=== PATIENT | female | born 1940 | race Caucasian/White ===

== ENCOUNTER → 2016-07-20 | Outpatient (CLI) | payer OTHER | END | disposition home or self-care (01) | LOC: PCVCCLINIC 14:50 | PROVIDERS: ATTEND Internal Medicine Cardiovascular Disease | DX: I10 Essential (primary) hypertension (principal); I42.9 Cardiomyopathy, unspecified; I35.0 Nonrheumatic aortic (valve) stenosis; E78.5 Hyperlipidemia, unspecified; G47.33 Obstructive sleep apnea (adult) (pediatric); K50.919 Crohn's disease, unspecified, with unspecified complications; Z79.82 Long term (current) use of aspirin; Z87.891 Personal history of nicotine dependence | CPT/HCPCS: 93005; G0463 ==

== ENCOUNTER → 2017-05-07 | Outpatient (CLI) | payer OTHER | END | disposition home or self-care (01) | LOC: PCVCIMAG 08:00 | DX: I08.3 Combined rheumatic disorders of mitral, aortic and tricuspid valves (principal); I42.9 Cardiomyopathy, unspecified | CPT/HCPCS: 93306 ==

== ENCOUNTER → 2017-11-26 | Outpatient (CLI) | payer OTHER | END | disposition home or self-care (01) | LOC: PCVCCLINIC 15:02 | PROVIDERS: ATTEND Internal Medicine Cardiovascular Disease | DX: I10 Essential (primary) hypertension (principal); I42.8 Other cardiomyopathies; I35.0 Nonrheumatic aortic (valve) stenosis; I45.4 Nonspecific intraventricular block; E78.00 Pure hypercholesterolemia, unspecified; G47.30 Sleep apnea, unspecified; Z79.82 Long term (current) use of aspirin; Z87.891 Personal history of nicotine dependence | CPT/HCPCS: 80061; 93005; G0463 ==

== ENCOUNTER → 2018-05-31 | Outpatient (CLI) | payer OTHER ==
--- NOTE | 2018-05-31 15:47 | PCVCIMAG ---
APPROVED REPORT Study performed: 05/31/2018 09:49:58 EXAM: Comprehensive 2D, Doppler, and color-flow Echocardiogram Patient Location: Echo lab Room #: 2Status: routine BSA: 2.12 HR: 64 bpmBP: 146/66 mmHg Rhythm: NSR with IVCD Other Information Study Quality: Adequate Technically limited study due to surgical scarring. Risk Factors: Cardiac Risk Factors: HTN, Hyperlipidemia Indications Aortic Valve Disease Mitral Valve Disease Cardiomyopathy 2D Dimensions IVSd: 12.51 (7-11mm)LVOT Diam: 19.54 (18-24mm) LVDd: 46.88 mm PWd: 12.01 (7-11mm) LVDs: 30.63 (25-40mm) Left Atrium: 42.56 (27-40mm) Aortic Root: 23.64 mm LV Single Plane 4CH: 56.18 % LV Single Plane 2CH: 54.06 % Biplane EF: 54.0 % Volumes Left Atrial Volume (Systole) Single Plane 4CH: 62.59 mLSingle Plane 2CH: 59.37 mL Biplane LA Volume: 62.00 mLLA ESV Index: 29.00 mL/m2 Aortic Valve AoV Peak Sonido.: 2.73 m/s AO Peak Gr.: 28.83 mmHgLVOT Max P.99 mmHg AO Mean Gr.: 18.28 mmHgLVOT Mean P.56 mmHg AO V2 Mean: 2.01 m/sLVOT Max V: 1.04 m/s AO V2 VTI: 65.38 cmLVOT Mean V: 0.75 m/s ASHLEY (VTI): 1.08 [id number] V1 VTI: 23.65 cm ASHLEY Vmax: 1.14 cm2 SV (LVOT): 70.88 mL Mitral Valve MV Peak Gr.: 8.85 mmHg MV Mean Gr.: 2.65 mmHgE/A Ratio: 1.5 MV Decel. Time: 325.37 ms MV E Max Sonido.: 1.58 m/s MV A Sonido.: 1.07 m/s MV Max Sonido.: 1.49 m/s MV Mean Sonido.: 0.74 m/s MV VTI: 391.37 mm MVA VTI: 181.11 mm2 MV PHT: 88.76 ms MVA (PHT): 2.48 cm2 TDI E/Lateral E': 13.17E/Medial E': 39.50 Medial E' Sonido.: 0.04 m/s Lateral E' Sonido.: 0.12 m/s Pulmonary Vein P Vein S: 0.39 m/sP Vein A: 0.31 m/s P Vein D: 0.44 m/sP Vein A Dur.: 131.5 msec P Vein S/D Ratio: 0.89 Tricuspid Valve TR Peak Sonido.: 2.86 m/s TR Peak Gr.: 32.62 mmHg TV Vmax: 0.77 m/sPA Pressure: 43.00 mmHg Left Ventricle The left ventricle is normal size. There is normal LV segmental wall motion. Mild concentric left ventricular hypertrophy. Left ventricular systolic function is normal. The left ventricular ejection fraction is within the normal range. LVEF is 55-60%. Findings suggest the left atrial pressure is elevated. Right Ventricle The right ventricle is normal size. The right ventricular systolic function is normal. Atria The left atrium size is normal. The right atrium size is normal. Aortic Valve Aortic valve is trileaflet. Moderate aortic valve sclerosis with reduced leaflet excursion. No aortic regurgitation is present. Moderate aortic stenosis. Highest mean aortic valve gradient is 18.3_mmHg. Peak aortic valve gradient is 30.1_mmHg. Calculated ASHLEY by the continuity equation is 1.2_cm2. Mitral Valve The posterior leaflet of the mitral valve is moderately thickened but opens well. Moderate mitral regurgitation. No evidence of mitral valve stenosis. Tricuspid Valve The tricuspid valve is normal in structure. Mild tricuspid regurgitation with a PA pressure of 43 mmHg. Moderate pulmonary hypertension. Pulmonic Valve Pulmonic valve is not well visualized. There is no pulmonic valvular regurgitation. Great Vessels The aortic root is normal in size. Ascending aorta is not visualized. Aortic arch is not well visualized. IVC is normal in size and collapses <50% with inspiration. Pericardium There is no pericardial effusion. There is no pleural effusion. <Conclusion> The left ventricle is normal size. LVEF is 55-60%. Findings suggest the left atrial pressure is elevated. The right ventricle is normal size. The left atrium size is normal. Aortic valve is trileaflet. Moderate aortic valve sclerosis with reduced leaflet excursion. Moderate aortic stenosis. Highest mean aortic valve gradient is 18.3_mmHg. Peak aortic valve gradient is 30.1_mmHg. Calculated ASHLEY by the continuity equation is 1.2_cm2. The posterior leaflet of the mitral valve is moderately thickened but opens well. Moderate mitral regurgitation. Mild tricuspid regurgitation with a PA pressure of 43 mmHg. Moderate pulmonary hypertension. The aortic root is normal in size. There is no pericardial effusion.
== END | disposition home or self-care (01) ==
LOC: PCVCIMAG 09:35
PROVIDERS: ATTEND Internal Medicine Cardiovascular Disease
DX: I08.3 Combined rheumatic disorders of mitral, aortic and tricuspid valves (principal); I27.20 Pulmonary hypertension, unspecified; I42.9 Cardiomyopathy, unspecified
CPT/HCPCS: 93306

== ENCOUNTER → 2018-08-22 | Outpatient (CLI) | payer OTHER | END | disposition home or self-care (01) | LOC: PCVCCLINIC 09:40 | PROVIDERS: ATTEND Internal Medicine Cardiovascular Disease | DX: I48.0 Paroxysmal atrial fibrillation (principal); I35.0 Nonrheumatic aortic (valve) stenosis; I42.9 Cardiomyopathy, unspecified; K50.919 Crohn's disease, unspecified, with unspecified complications; E78.00 Pure hypercholesterolemia, unspecified; I10 Essential (primary) hypertension; I45.4 Nonspecific intraventricular block; G47.30 Sleep apnea, unspecified; E78.5 Hyperlipidemia, unspecified | CPT/HCPCS: 36415; 80061; 93005; G0463 ==

== ENCOUNTER → 2018-12-20 | Outpatient (CLI) | payer OTHER ==
--- NOTE | 2018-12-20 16:41 | PCVCIMAG ---
APPROVED REPORT Study performed: 12/20/2018 13:13:49 EXAM: Comprehensive 2D, Doppler, and color-flow Echocardiogram Patient Location: Echo lab [facility] BSA: 2.12 HR: 77 bpmBP: 128/70 mmHg Rhythm: NSR Other Information Study Quality: Adequate Risk Factors: Cardiac Risk Factors: HTN, Hyperlipidemia Indications Aortic Valve Disease Mitral Valve Disease Pacemaker Cardiomyopathy 2D Dimensions IVSd: 8.95 (7-11mm)LVOT Diam: 20.22 (18-24mm) LVDd: 53.01 mm PWd: 11.14 (7-11mm) LVDs: 35.99 (25-40mm) Left Atrium: 36.76 (27-40mm) LV Single Plane 4CH: 48.66 % LV Single Plane 2CH: 62.63 % Biplane EF: 60.0 % Volumes Left Atrial Volume (Systole) Single Plane 4CH: 100.22 mLSingle Plane 2CH: 80.74 mL Biplane LA Volume: 92.00 mLLA ESV Index: 43.00 mL/m2 Aortic Valve AoV Peak Sonido.: 3.10 m/s AO Peak Gr.: 40.15 mmHgLVOT Max P.32 mmHg AO Mean Gr.: 23.28 mmHgLVOT Mean P.74 mmHg AO V2 Mean: 2.28 m/sLVOT Max V: 1.11 m/s AO V2 VTI: 74.35 cmLVOT Mean V: 0.78 m/s ASHLEY (VTI): 1.15 [id number] V1 VTI: 26.66 cm ASHLEY Vmax: 1.15 cm2 SV (LVOT): 85.59 mL Mitral Valve MV Peak Gr.: 13.15 mmHg MV Mean Gr.: 6.03 mmHgE/A Ratio: 1.1 MV Decel. Time: 177.38 ms MV E Max Sonido.: 1.38 m/s MV A Sonido.: 1.30 m/s MV Max Sonido.: 1.81 m/s MV Mean Sonido.: 1.18 m/s MV VTI: 434.37 mm MVA VTI: 197.06 mm2 MV PHT: 73.09 ms MVA (PHT): 2.93 cm2 Left Ventricle The left ventricle is normal size. There is normal LV segmental wall motion. There is normal left ventricular wall thickness. Left ventricular systolic function is normal. The left ventricular ejection fraction is within the normal range. LVEF is 60%. Right Ventricle The right ventricle is normal size. The right ventricular systolic function is normal. Atria The left atrium size is normal. The right atrium size is normal. Aortic Valve Aortic valve is probably trileaflet. Moderate aortic valve sclerosis. No aortic regurgitation is present. Moderate aortic stenosis. Highest mean aortic valve gradient is 23_mmHg. Peak aortic valve gradient is 39_mmHg. Calculated ASHLEY by the continuity equation is 1.1_cm2. Mitral Valve Moderate mitral annular calcification. Mitral valve leaflets open well. Moderate mitral regurgitation. No evidence of mitral valve stenosis. Tricuspid Valve The tricuspid valve is normal in structure. Trace tricuspid regurgitation. Pulmonic Valve The pulmonary valve is normal in structure. There is no pulmonic valvular regurgitation. Great Vessels The aortic root is normal in size. Ascending aorta is not well visualized. IVC is dilated and collapses <50% with inspiration. Pericardium There is no pericardial effusion. There is no pleural effusion. <Conclusion> The left ventricle is normal size. LVEF is 60%. The right ventricle is normal size. The left atrium size is normal. The left atrium size is normal. Aortic valve is probably trileaflet. Moderate aortic valve sclerosis. Moderate aortic stenosis. Highest mean aortic valve gradient is 23_mmHg. Peak aortic valve gradient is 39_mmHg. Calculated ASHLEY by the continuity equation is 1.1_cm2. Moderate mitral annular calcification. Mitral valve leaflets open well. Moderate mitral regurgitation. Trace tricuspid regurgitation. The aortic root is normal in size. There is no pericardial effusion.
== END | disposition home or self-care (01) ==
LOC: PCVCIMAG 13:15
PROVIDERS: ATTEND Internal Medicine Cardiovascular Disease
DX: I08.0 Rheumatic disorders of both mitral and aortic valves (principal); I42.9 Cardiomyopathy, unspecified; I42.8 Other cardiomyopathies; I10 Essential (primary) hypertension; Z87.891 Personal history of nicotine dependence
CPT/HCPCS: 93308